=== PATIENT | male | born 1975 ===

== ENCOUNTER 2021-02-11 11:45 | Day surgery (SDC) | payer OTHER | END 2021-02-11 16:10 | disposition home or self-care (01) | LOC: AMB-ENDOS 11:45 | PROVIDERS: ATTEND Colon & Rectal Surgery | DX: D12.2 Benign neoplasm of ascending colon (principal); K64.2 Third degree hemorrhoids; Z20.822 Contact with and (suspected) exposure to COVID-19 ==